=== PATIENT | female | born 1980 | race Caucasian/White ===

== ENCOUNTER 2016-04-22 07:31 | Outpatient (CLI) | payer OTHER | END 2016-04-22 21:06 | disposition home or self-care (01) | LOC: MLB 07:31 | PROVIDERS: ATTEND Internal Medicine | DX: Z00.00 Encounter for general adult medical examination without abnormal findings (principal) ==

== ENCOUNTER 2016-09-20 22:16 | Emergency (ER) | payer OTHER ==
[~2016-09-20] VITALS: Ht 167.6 cm; Wt 106.6 kg
[2016-09-20 22:40] VITALS: BP 157/89
--- NOTE | 2016-09-21 00:40 | NUR ---
PT TAKEN TO BED 4
--- NOTE | 2016-09-21 00:47 | NUR ---
Dr. Romero evaluating patient at bedside.
--- NOTE | 2016-09-21 01:00 | NUR ---
PATIENT PRESENTS TO ED WITH C/O HEADACHE . PT DENIES N/V/D; SKIN IS PINK/WARM/DRY; AAOX4 WITH EVEN AND STEADY GAIT; LUNGS CLEAR BL; HR EVEN AND REGULAR; PT DENIES ANY FEVER, CP, SOB, OR COUGH AT THIS TIME; PATIENT STATES PAIN OF 6/10 AT THIS TIME; VSS; PATIENT POSITIONED FOR COMFORT; HOB ELEVATED; BEDRAILS UP X2; BED DOWN. ER MD MADE AWARE OF PT STATUS.
--- NOTE | 2016-09-21 01:46 | NUR ---
PT TAKEN TO CT
[2016-09-21] MEDS: NACL 0.9% 1,000 ML IV ONE (01:51)
[2016-09-21] MEDS: diphenhydrAMINE 50 MG/ML VIAL IVP ONE (01:51)
[2016-09-21] MEDS: KETOROLAC 30 MG/ML VIAL IVP ONE (01:51)
[2016-09-21] MEDS: METOCLOPRAMIDE 10 MG/2 ML INJ VIAL IVP ONE (01:52)
[2016-09-21] MEDS: MORPHINE SULFATE 2 MG/ML SYR IVP ONE (03:10)
--- NOTE | 2016-09-21 03:12 | NUR ---
Patient discharged with v/s stable. Written and verbal after care instructions given and explained. Patient alert, oriented and verbalized understanding of instructions. Ambulatory with steady gait. All questions addressed prior to discharge. ID band removed. Patient advised to follow up with PMD. Rx of FIORICET AND REGLAN given. Patient educated on indication of medication including possible reaction and side effects. Opportunity to ask questions provided and answered.
[2016-09-21 03:13] VITALS: BP 127/84
== END 2016-09-21 03:12 | disposition home or self-care (01) ==
LOC: MED 22:16 → EEVIPCON 22:16 → MED 09-21 03:12
DX: R51 Headache (principal); R11.0 Nausea
CPT/HCPCS: 70450; 81025; 96361; 96374; 96375; 99284; J1200; J1885; J2270; J2765; J7030

== ENCOUNTER 2016-10-10 07:34 | Emergency (ER) | payer OTHER ==
[~2016-10-10] VITALS: Ht 167.6 cm; Wt 104.3 kg
[2016-10-10 07:47] VITALS: BP 132/101
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
--- NOTE | 2016-10-10 08:01 | NUR ---
DR GRANT EVALUATING AAO PT AT BEDSIDE
[2016-10-10] MEDS ORDERED: ONDANSETRON 4 MG ODT PO ONE (08:05)
[2016-10-10] MEDS ORDERED: APAP/BUTAL/CAFF 325/50/40 MG 1 TAB PO ONE (08:05)
[2016-10-10] MEDS ORDERED: KETOROLAC 30 MG/ML VIAL IM ONE (08:30)
[2016-10-10 09:06] VITALS: BP 130/90
--- NOTE | 2016-10-10 09:06 | NUR ---
Patient discharged with v/s stable. Written and verbal after care instructions given and explained. Patient verbalized understanding. Ambulatory with steady gait. All questions addressed prior to discharge. Advised to follow up with PMD.
== END 2016-10-10 09:06 | disposition home or self-care (01) ==
LOC: MED 07:34
DX: G43.909 Migraine, unspecified, not intractable, without status migrainosus (principal); R11.0 Nausea; F41.9 Anxiety disorder, unspecified
CPT/HCPCS: 96372; 99283; J1885; S0119

== ENCOUNTER 2016-10-16 09:45 | Outpatient (CLI) | payer OTHER ==
[2016-10-16 10:21] LABS: BASOPHILS # (AUTO) 0.3 K/uL (0.00-0.22); BASOPHILS % (AUTO) 4.1 % (0.0-2.0); EOSINOPHILS # (AUTO) 0.5 K/uL (0-0.4); EOSINOPHILS % (AUTO) 6.5 % (0.0-4.0); HEMATOCRIT 43.4 % (36-48); HEMOGLOBIN 14.6 g/dL (12.0-16.0); LYMPHOCYTES # (AUTO) 2.1 K/uL (2.5-16.5); LYMPHOCYTES % (AUTO) 26.1 % (20.5-51.1); MEAN CORPUSCULAR HEMOGLOBIN 30 pg (27-31); MEAN CORPUSCULAR HGB CONC 34 g/dL (33-37); MEAN CORPUSCULAR VOLUME 88 fL (80-94); MONOCYTES # (AUTO) 0.4 K/uL (0.8-1.0); MONOCYTES % (AUTO) 4.8 % (1.7-9.3); NEUTROPHILS # (AUTO) 4.9 K/uL (1.8-7.7); NEUTROPHILS % (AUTO) 58.5 % (42.2-75.2); PLATELET COUNT (AUTO) 277 K/uL (140-450); RED BLOOD CELL COUNT(AUTO) 4.93 MIL/uL (4.20-5.40); RED CELL DISTRIBUTION WIDTH 12.6 % (11.6-13.7)
[2016-10-16 10:39] LABS: WHITE BLOOD COUNT (AUTO) 8.2 K/uL (4.8-10.8)
[2016-10-16 11:05] LABS: ALBUMIN 4.4 g/dL (3.4-5.0); ANION GAP 16.3 (8-16); BILIRUBIN,DIRECT 0.1 mg/dL (0.0-0.3); CARBON DIOXIDE 24.1 mmol/L (21-32); CHOL/HDL RATIO 4.1 (1-4.5); POTASSIUM 4.4 mmol/L (3.5-5.1); TOTAL BILIRUBIN 0.4 mg/dL (0.0-1.0)
== END 2016-10-16 21:03 | disposition home or self-care (01) ==
LOC: MLB 09:45
PROVIDERS: ATTEND Internal Medicine
DX: Z00.00 Encounter for general adult medical examination without abnormal findings (principal)
CPT/HCPCS: 36415; 80053; 80076; 83036; 85025

== ENCOUNTER 2019-10-30 10:52 | Outpatient (CLI) | payer OTHER ==
[2019-10-30 11:29] LABS: BASOPHILS # (AUTO) 0.1 K/uL (0.00-0.22); BASOPHILS % (AUTO) 0.8 % (0.0-2.0); EOSINOPHILS # (AUTO) 0.5 K/uL (0-0.4); EOSINOPHILS % (AUTO) 7.3 % (0.0-4.0); HEMATOCRIT 41.6 % (36-48); HEMOGLOBIN 13.9 g/dL (12.0-16.0); LYMPHOCYTES % (AUTO) 29.8 % (20.5-51.1); MEAN CORPUSCULAR HEMOGLOBIN 31 pg (27-31); MEAN CORPUSCULAR HGB CONC 33 g/dL (33-37); MEAN CORPUSCULAR VOLUME 91.7 fL (80-94); MONOCYTES # (AUTO) 0.6 K/uL (0.8-1.0); MONOCYTES % (AUTO) 8.5 % (1.7-9.3); NEUTROPHILS # (AUTO) 3.6 K/uL (1.8-7.7); NEUTROPHILS % (AUTO) 53.6 % (42.2-75.2); PLATELET COUNT (AUTO) 262 K/uL (140-450); RED BLOOD CELL COUNT(AUTO) 4.54 MIL/uL (4.20-5.40); RED CELL DISTRIBUTION WIDTH 13.2 % (11.6-13.7); WHITE BLOOD COUNT (AUTO) 6.6 K/uL (4.8-10.8)
[2019-10-30 13:33] LABS: ALBUMIN 3.9 g/dL (3.4-5.0); ANION GAP 15.6 (8-16); BILIRUBIN,DIRECT 0.1 mg/dL (0.0-0.3); CARBON DIOXIDE 23.2 mmol/L (21-32); CHOL/HDL RATIO 3.8 (1-4.5); POTASSIUM 3.8 mmol/L (3.5-5.1); TOTAL BILIRUBIN 0.4 mg/dL (0.0-1.0)
== END 2019-10-30 21:14 | disposition home or self-care (01) ==
LOC: MLB 10:52
PROVIDERS: ATTEND Internal Medicine
DX: Z00.00 Encounter for general adult medical examination without abnormal findings (principal)
CPT/HCPCS: 36415; 80053; 80076; 82306; 85025